=== PATIENT | male | born 1965 | race Hispanic/Latino ===

== ENCOUNTER 2017-10-15 23:18 | Emergency (ER) | payer SELFPAY ==
[2017-10-16] MEDS ORDERED: TYLENOL ONE (00:34)
[2017-10-16] MEDS ORDERED: TYLENOL PO ONE (00:34)
--- NOTE | 2017-10-16 02:51 | XRay Report ---
FINAL REPORT EXAM: XR SACRUM/COCCYX CLINICAL INDICATIONS: S/P FALL, DIFFICULT TO AMBULATE FINDINGS: AP and lateral views of the sacrum and coccyx were acquired. No fracture is seen in the sacrum or coccyx. No destructive lesion is identified. IMPRESSION: NO FRACTURE IS SEEN IN THE SACRUM OR COCCYX
[2017-10-16] MEDS ORDERED: MOTRIN PO ONE (06:24)
--- NOTE | 2017-10-16 06:27 | Emergency Department Report ---
ED Fall HPI - General Chief Complaint: Fall Stated Complaint: LOWER BACK/TAILBONE PAIN Time Seen by Provider: 10/16/17 06:23 Source: patient Mode of arrival: Ambulatory - History of Present Illness Initial Comments: 52-year-old male comes in for evaluation reports that he had fallen at work and hurt his tail bone. Patient reports that he was climbing down a small ladder and fail straight on his back. Patient reports that it is painful to walk. Patient reports he has a past medical history of asthma high cholesterol. Patient reports that he is a smoker. Current medications patient takes his albuterol for his asthma. Patient reports no known drug allergies. MD Complaint: fall -: Last night Time: 18:30 Fall From: down stairs (#) (3) When Fall Occurred: just prior to arrival Place Fall Occurred: work Loss of Consciousness: none Prolonged Down Time?: no Symptoms Prior to Fall: none Location: buttocks Severity scale (0 -10): 10 Quality: dull, aching Associated Symptoms: denies - Related Data Previous Rx's Medication Instructions Recorded Last Taken Type Naproxen [Naprosyn] 500 mg PO BID PRN #20 tablet 10/16/17 Unknown Rx Allergies Allergy/AdvReac Type Severity Reaction Status Date / Time No Known Allergies Allergy Unverified 10/16/17 00:24 ED Review of Systems ROS: Stated complaint: LOWER BACK/TAILBONE PAIN Other details as noted in HPI Constitutional: denies: chills, fever Eyes: denies: eye pain, eye discharge, vision change ENT: denies: ear pain, throat pain Respiratory: denies: cough, shortness of breath, wheezing Cardiovascular: denies: chest pain, palpitations Endocrine: no symptoms reported Gastrointestinal: denies: abdominal pain, nausea, diarrhea Genitourinary: denies: urgency, dysuria Musculoskeletal: other (pain in his coccyx). denies: back pain, joint swelling , arthralgia Skin: denies: rash, lesions Neurological: denies: headache, weakness, paresthesias Psychiatric: denies: anxiety, depression Hematological/Lymphatic: denies: easy bleeding, easy bruising ED Past Medical Hx - Past Medical History Previous Medical History?: Yes Hx Asthma: Yes Additional medical history: high cholesterol - Surgical History Past Surgical History?: Yes Additional Surgical History: Ankle - Social History Smoking Status: Current Every Day Smoker Substance Use Type: None - Medications Home Medications: Home Medications Medication Instructions Recorded Confirmed Last Taken Type Naproxen [Naprosyn] 500 mg PO BID PRN #20 tablet 10/16/17 Unknown Rx ED Physical Exam - General Limitations: No Limitations General appearance: alert, in no apparent distress - Head Head exam: Present: atraumatic, normocephalic - Eye Eye exam: Present: normal appearance - ENT ENT exam: Present: mucous membranes moist - Neck Neck exam: Present: normal inspection - Respiratory Respiratory exam: Present: normal lung sounds bilaterally. Absent: respiratory distress - Cardiovascular Cardiovascular Exam: Present: regular rate, normal rhythm. Absent: systolic murmur, diastolic murmur, rubs, gallop - GI/Abdominal GI/Abdominal exam: Present: soft, normal bowel sounds - Rectal Rectal exam: Present: deferred - Extremities Exam Extremities exam: Present: normal inspection - Back Exam Back exam: Present: normal inspection, tenderness (sacrococcyx ) - Neurological Exam Neurological exam: Present: alert, oriented X3 - Psychiatric Psychiatric exam: Present: normal affect, normal mood - Skin Skin exam: Present: warm, dry, intact, normal color. Absent: rash ED Course Vital Signs 10/16/17 10/16/17 00:09 00:26 Temperature 97.7 F Pulse Rate 101 H 102 H Respiratory 18 Rate Blood Pressure 147/77 147/77 O2 Sat by Pulse 98 98 Oximetry ED Medical Decision Making - Medical Decision Making Patient has been evaluated by this provider in fast track. I discussed the patient that his x-rays were negative for any fractures. I discussed the patient I will give him pain medication. Discussed the patient I will discharge him on naproxen 500 mg twice a day for a few days. I did discuss the patient that he may have some soreness when he sits. Patient verbalized understanding. Critical care attestation.: If time is entered above; I have spent that time in minutes in the direct care of this critically ill patient, excluding procedure time. ED Disposition Clinical Impression: Coccyx pain Fall Qualifiers: Encounter type: initial encounter Qualified Code(s): W19.XXXA - Unspecified fall, initial encounter Disposition: DC-01 TO HOME OR SELFCARE Is pt being admited?: No Does the pt Need Aspirin: No Condition: Stable Additional Instructions: Take pain medication as prescribed. Pain persist or gets worse follow-up with her primary care provider. Prescriptions: Naproxen [Naprosyn] 500 mg PO BID PRN #20 tablet PRN Reason: pain Referrals: JABARI SHEFFIELD MD [Primary Care Provider] - 3-5 Days [facility] [Provider Group] - 3-5 Days Forms: Work/School Release Form(ED)
[2017-10-16 07:31] VITALS: BP 116/71
== END 2017-10-16 07:20 | disposition home or self-care (01) ==
LOC: ED 23:18
DX: M53.3 Sacrococcygeal disorders, not elsewhere classified (principal); J45.909 Unspecified asthma, uncomplicated; E78.00 Pure hypercholesterolemia, unspecified; F17.200 Nicotine dependence, unspecified, uncomplicated; W11.XXXA Fall on and from ladder, initial encounter; Y93.89 Activity, other specified; Y92.89 Other specified places as the place of occurrence of the external cause; Y99.8 Other external cause status
CPT/HCPCS: 72220; 99283

== ENCOUNTER 2018-04-03 05:09 | Emergency (ER) | payer SELFPAY ==
[2018-04-03 07:12] LABS: Hematocrit 48.7 % (35.5-45.6); Hemoglobin 16.4 gm/dl (11.8-15.2); Mean Corpuscular HGB Conc 34 % (32-34); Mean Corpuscular Hemoglobin 31 pg (28-32); Mean Corpuscular Volume 92 fl (84-94); Platelet Count 367 K/mm3 (140-440); Red Blood Count 5.31 M/mm3 (3.65-5.03); Red Cell Distribution Width 14.3 % (13.2-15.2)
[2018-04-03 07:19] LABS: Bacteria,Urine 2+ /HPF (Negative); Bilirubin,Urine NEG (Negative); Blood,Urine NEG (Negative); Calcium Oxalate Crystals,Urine 2+; Color,Urine Amber (Yellow); Mucus,Urine 3+ /HPF
[2018-04-03 07:26] LABS: BUN/Creatinine Ratio 23; Blood Urea Nitrogen 16 mg/dL (9-20); Calcium 9.5 mg/dL (8.4-10.2); Hemolysis Index 10
[2018-04-03 07:27] LABS: Benzodiazepines Screen,Urine PRESUMPTIVE NEGATIVE; Cannabinoid Screen,Urine PRESUMPTIVE NEGATIVE; Cocaine Screen,Urine PRESUMPTIVE NEGATIVE; Methadone Screen,Urine PRESUMPTIVE NEGATIVE; Opiate Screen,Urine PRESUMPTIVE NEGATIVE
[2018-04-03 08:06] LABS: Amphetamine Screen,Urine PRESUMPTIVE POSITIVE
[2018-04-03 08:20] LABS: Total Cells Counted 100
[2018-04-03 08:21] LABS: Basophils % (Manual) 0 % (0.0-1.8); Eosinophils % (Manual) 0 % (0.0-4.3); Platelet Estimate Consistent w Auto; RBC Morphology Normal
--- NOTE | 2018-04-03 11:18 | Emergency Department Report ---
ED Psych HPI - General Chief Complaint: Psych Stated Complaint: MH Time Seen by Provider: 04/03/18 11:13 Source: patient, EMS Mode of arrival: Stretcher Limitations: No Limitations - History of Present Illness Initial Comments: Patient is said that he seen people were trying to harm him. Patient is hypervigilant and restless. He denies suicidal or homicidal ideation. He also denies history of psychiatric problems. -: Sudden Associated Psychiatric Symptoms: racing thoughts, visual hallucinations Quality: constant Improves With: none Worsens With: none Context: recent drug abuse Associated Symptoms: denies other symptoms Treatments Prior to Arrival: none - Related Data Home Medications Medication Instructions Recorded Confirmed Last Taken Gabapentin 300 mg PO TID 04/03/18 04/03/18 Unknown Zanaflex 4 mg PO Q8H PRN 04/03/18 04/03/18 Unknown Previous Rx's Medication Instructions Recorded Last Taken Type Naproxen [Naprosyn] 500 mg PO BID PRN #20 tablet 10/16/17 Unknown Rx Allergies Allergy/AdvReac Type Severity Reaction Status Date / Time No Known Allergies Allergy Unverified 10/16/17 00:24 ED Review of Systems ROS: Stated complaint: MH Other details as noted in HPI Comment: All other systems reviewed and negative Constitutional: denies: chills, fever Eyes: denies: eye pain ENT: denies: ear pain, throat pain Respiratory: denies: cough, shortness of breath Cardiovascular: denies: chest pain, palpitations, dyspnea on exertion Endocrine: no symptoms reported Gastrointestinal: denies: abdominal pain, nausea, vomiting, diarrhea Genitourinary: denies: urgency, dysuria Musculoskeletal: denies: back pain Skin: denies: rash, lesions Neurological: denies: headache, weakness Psychiatric: anxiety, visual hallucinations. denies: depression, auditory hallucinations, homicidal thoughts, suicidal thoughts Hematological/Lymphatic: denies: easy bleeding, easy bruising ED Past Medical Hx - Past Medical History Hx Asthma: Yes Additional medical history: high cholesterol - Surgical History Additional Surgical History: Ankle - Social History Smoking Status: Current Every Day Smoker Substance Use Type: None - Medications Home Medications: Home Medications Medication Instructions Recorded Confirmed Last Taken Type Naproxen [Naprosyn] 500 mg PO BID PRN #20 tablet 10/16/17 04/03/18 Unknown Rx Gabapentin 300 mg PO TID 04/03/18 04/03/18 Unknown History Zanaflex 4 mg PO Q8H PRN 04/03/18 04/03/18 Unknown History ED Physical Exam - General Limitations: No Limitations General appearance: alert, in no apparent distress, anxious, other ( hypervigilant) - Head Head exam: Present: atraumatic, normocephalic, normal inspection - Eye Eye exam: Present: normal appearance, PERRL, EOMI Pupils: Present: normal accommodation, mydriatic - ENT ENT exam: Present: normal exam, normal orophraynx, mucous membranes moist - Neck Neck exam: Present: normal inspection, full ROM. Absent: tenderness - Respiratory Respiratory exam: Absent: respiratory distress, wheezes, rales, rhonchi, stridor - Cardiovascular Cardiovascular Exam: Present: normal rhythm, tachycardia, normal heart sounds - GI/Abdominal GI/Abdominal exam: Present: soft, normal bowel sounds. Absent: distended, tenderness, guarding, rebound, rigid - Extremities Exam Extremities exam: Present: normal inspection, full ROM, normal capillary refill. Absent: tenderness - Back Exam Back exam: Present: normal inspection, full ROM. Absent: tenderness - Neurological Exam Neurological exam: Present: alert, oriented X3, CN II-XII intact - Psychiatric Psychiatric exam: Present: normal mood, anxious. Absent: homicidal ideation, suicidal ideation - Skin Skin exam: Present: warm, dry, intact, normal color. Absent: rash ED Course Vital Signs 04/03/18 06:32 Temperature 98.1 F Pulse Rate 131 H Respiratory 16 Rate Blood Pressure 112/75 O2 Sat by Pulse 97 Oximetry - Reevaluation(s) Reevaluation #1: 04/03/18 12:10 Patient is medically clear for psychiatric evaluation. ED Medical Decision Making - Lab Data Result diagrams: 04/03/18 06:51 04/03/18 06:51 - EKG Data -: EKG Interpreted by Ut EKG shows normal: sinus rhythm Rate: tachycardia (113) - EKG Data When compared to previous EKG there are: previous EKG unavailable Interpretation: other (No STEMI) - Medical Decision Making Delusional disorder. Paranoid. Drug abuse. Visual hallucinations. Critical care attestation.: If time is entered above; I have spent that time in minutes in the direct care of this critically ill patient, excluding procedure time. ED Disposition Clinical Impression: Visual hallucinations, Paranoid delusion, Amphetamine abuse, Delusional disorder Disposition: DC/TX-65 PSY HOSP/PSY UNIT Is pt being admited?: No Does the pt Need Aspirin: No Condition: Stable Referrals: PRIMARY CARE, [Primary Care Provider] - 3-5 Days Time of Disposition: 11:48
[2018-04-03] MEDS ORDERED: HALDOL IM ONE (11:40)
[2018-04-03 11:41] LABS: Alanine Aminotransferase 22 units/L (7-56); Albumin 4.5 g/dL (3.9-5)
[2018-04-03 11:42] LABS: Bilirubin,Direct < 0.2 mg/dL (0-0.2)
[2018-04-03] MEDS ORDERED: ATIVAN IM ONE ×2 (11:42→12:16)
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
[2018-04-04] MEDS: VISTARIL PO SCH ×2 (14:41→22:57)
[2018-04-05] MEDS: VISTARIL PO SCH ×2 (01:37→10:15)
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
--- NOTE | 2018-04-05 16:10 | Emergency Department Report ---
Blank Doc - Documentation Documentation: I have reviewed psychiatric consultation and recommendations. Patient is appropriate for discharge.
[2018-04-05 16:41] VITALS: BP 104/70
== END 2018-04-05 17:04 | disposition home or self-care (01) ==
LOC: ED 05:09 → EEVIPCON 05:09 → ED 04-05 17:04
DX: F29 Unspecified psychosis not due to a substance or known physiological condition (principal); F22 Delusional disorders; F15.10 Other stimulant abuse, uncomplicated; F17.200 Nicotine dependence, unspecified, uncomplicated; J45.909 Unspecified asthma, uncomplicated; Z79.899 Other long term (current) drug therapy
CPT/HCPCS: 36415; 80048; 80074; 80307; 81001; 84484; 85007; 85025; 93005; 93010; 96372; 99284; G0480; J1630; 80320; J2060; Q0177